=== PATIENT | male | born 1965 | race Caucasian/White ===

== ENCOUNTER → 2022-06-29 07:58 | Outpatient (BNVA) | payer OTHER, SELFPAY | PROVIDERS: Family Provider Electrodiagnostic Medicine; PCP Family Medicine; Visit Provider Family Medicine | DX: I10 Essential (primary) hypertension (principal); M54.32 Sciatica, left side; Z00.00 Encounter for general adult medical examination without abnormal findings; E66.9 Obesity, unspecified; Z72.0 Tobacco use | CPT/HCPCS: 80053; 80061; 83036; 85025 ==

== ENCOUNTER → 2022-07-13 09:34 | Outpatient (BNVA) | payer OTHER, SELFPAY | PROVIDERS: Family Provider Electrodiagnostic Medicine; PCP Family Medicine; Visit Provider Family Medicine | DX: I10 Essential (primary) hypertension (principal); M54.32 Sciatica, left side; Z72.0 Tobacco use | CPT/HCPCS: 80048 ==

== ENCOUNTER 2022-07-26 15:02 | Outpatient (CLI) | payer OTHER, SELFPAY ==
--- NOTE | 2022-07-26 15:15 | MR_ITS ---
WS: [id number] MRI LUMBAR SPINE NONCONTRAST TECHNIQUE: Sagittal T1, T2 and STIR imaging. Axial T1 and T2 imaging. CLINICAL INFORMATION: left sciatica COMPARISON: None. FINDINGS: Mild lumbar curve. Grade 1 anterolisthesis L5 on S1 with chronic spondylolysis. Bilateral facet effus ions L5-S1 can be seen with instability. L1-L2: Normal. L2-L3: Mild annular bulging. Small central protrusion. Mild central canal stenosis. Impingement trave rsing L3 nerve roots bilaterally. Small RIGHT foraminal protrusion with mild to moderate RIGHT forami nal narrowing. Mild facet arthropathy. L3-4: Mild annular bulging. Slight narrowing of the LEFT subarticular recess. Mild LEFT and no signif icant RIGHT foraminal narrowing. Mild facet arthropathy. L4-L5: Mild annular bulging. Impingement subarticular recess bilaterally. Mild LEFT and no significan t RIGHT foraminal narrowing. Moderate facet arthropathy. L5-S1: Grade 1 anterolisthesis L5 on S1 with bilateral spondylolysis. Endplate edema L5-S1. Advanced facet arthropathy with small facet effusions. Severe LEFT and moderate RIGHT foraminal narrowing. Imp ingement on the exiting L5 nerve roots. Visualized pelvic bony structures: Normal. Paravertebral soft tissues: Normal. MR/MR lumbar spine wo con* [id number] IMPRESSION: 1. Mild lumbar curve. No acute compression. Grade 1 anterolisthesis L5 on S1 w ith chronic spondylolysis. Anterolisthesis measures 5.7 mm 2. Advanced facet arthropathy L5-S1 with small bilateral facet effusions can b e seen with instability. 3. Mild central canal stenosis L2-L3 with a shallow central disc protrusion an d impingement subarticular recess bilaterally. 4. Small RIGHT foraminal protrusion L2-L3 with mild to moderate RIGHT foramina l narrowing and contact of the exiting RIGHT L2 nerve root. 5. Shallow disc bulging L4-L5 with impingement on the traversing L5 nerve root s bilaterally. Mild LEFT foraminal narrowing. 6. Severe LEFT and moderate RIGHT foraminal narrowing L5-S1.
== END 2022-07-26 15:03 | disposition home or self-care (01) ==
LOC: RAD 15:06
PROVIDERS: PCP Family Medicine; Visit Provider Family Medicine
DX: M54.32 Sciatica, left side (principal); M47.817 Spondylosis without myelopathy or radiculopathy, lumbosacral region; M48.061 Spinal stenosis, lumbar region without neurogenic claudication; M51.26 Other intervertebral disc displacement, lumbar region; M48.07 Spinal stenosis, lumbosacral region
CPT/HCPCS: 72148; 80053; 80061; 83036; 85025

== ENCOUNTER → 2022-08-03 08:07 | Outpatient (BNVA) | payer OTHER, SELFPAY | PROVIDERS: PCP Family Medicine; Visit Provider Family Medicine | DX: I10 Essential (primary) hypertension (principal); H61.21 Impacted cerumen, right ear; Z72.0 Tobacco use; M54.32 Sciatica, left side | CPT/HCPCS: 80048 ==

== ENCOUNTER 2022-09-28 16:40 | Emergency (ER) | payer OTHER, SELFPAY ==
--- NOTE | 2022-09-28 16:51 | ECG_ITS ---
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 Measurements Intervals [place] Rate: 84 P: 10 UT: 111 QRS: -21 QRSD: 116 T: 137 QT: 364 QTc: 431 Interpretive Statements SINUS RHYTHM WITH SHORT UT INTERVAL BORDERLINE LEFT AXIS DEVIATION [QRS AXIS < -20] LEFT VENTRICULAR HYPERTROPHY AND ST-T CHANGE [VOLTAGE CRITERIA PLUS ST/T ABNORMALITY] No previous ECG available for comparison Electronically Signed On 09-28-2022 17:44:28 CDT by Blanco Guerrero M.D. [id number]
[2022-09-28 16:52] VITALS: BP 171/100; PULSE 81; RESP 16; TEMP 37; O2SAT 98; BMI 33.3
--- NOTE | 2022-09-28 16:55 | XRR_ITS ---
PROCEDURE INFORMATION: Exam: XR Chest Exam date and time: 09/28/2022 5:00 PM Age: 57 years old Clinical indication: Pain; Angina pectoris; Additional info: Chest pain TECHNIQUE: Imaging protocol: Radiologic exam of the chest. Views: 1 view. COMPARISON: No relevant prior studies available. FINDINGS: Lungs: Unremarkable. No consolidation. Pleural spaces: Unremarkable. No pleural effusion. No pneumothorax. Heart/Mediastinum: Unremarkable. No cardiomegaly. Bones/joints: Unremarkable. XR/XR chest 1V portable [id number] IMPRESSION: No acute findings.
--- NOTE | 2022-09-28 17:02 | W.ED.CHESTPA ---
Documented by User: Leon Green DO 09/29/22 06:05 HPI - Chest Pain General: Chief Complaint: Chest Pain Stated Complaint: Chest Pain, Right shoulder pain Time Seen by Provider: 09/28/22 16:54 Source: patient Mode of arrival: ambulatory History of Present Illness: 57-year-old male presents emergency room complaining of right shoulder pain and chest pain. Has had this intermittently for the last 3 days it seems to have gotten worse. Substernal in nature radiates into his right shoulder last for a few minutes at a time seems to resolve spontaneously. Most of the episodes have been while at rest he 1 episode while he was working he does not really been able to tie it directly to exertion exacerbating it or rest relieving it. Not had any associated nausea or vomiting. No known history of coronary disease has not previously had any cardiac work-up he does have a history of hypertension. MD complaint: chest pain Onset (ago): day(s) (3) Timing of current episode: episodic Onset: during rest Pain location: substernal Pain radiation: right shoulder Severity: moderate Quality: tightness, aching and heaviness Relieving factors: nothing Exacerbating factors: nothing Associated symptoms: Deny abdominal pain, diaphoresis, dyspnea, fever(s), leg edema, nausea, palpitations, sense of impending doom, syncope or vomiting Treatment prior to arrival: aspirin Review of Systems Const: Denies: fever(s), chills, fatigue, malaise or diaphoresis ENMT: Denies: throat pain, ear or mastoid pain, nasal discharge or nasal congestion Card: Reports: chest pain; Denies: palpitations, irregular heart rhythm, edema, swelling of feet/ankles or syncope Resp: Denies: dyspnea GI: Denies: abdominal pain, nausea or vomiting : Denies: flank pain, dysuria, urinary frequency or urinary urgency Skin/Breast: Denies: rash or pruritus PFSH ED PFSH: Medical History Hypertension Surgical History History of colonoscopy History of repair of anterior cruciate ligament of right knee Family History Father Hypertension Hyperlipidemia CAD (coronary artery disease) Cancer prostate cancer Mother Stroke Social History Smoking and tobacco status: current every day smoker cigarettes Packs smoked per day: 0.5 Years cigarettes smoked: 25 [ Other cigarette details: 20 year history] Quit status (tobacco): quit date established Planned quit date: 07/13/22 Alcohol intake: current Alcohol intake frequency: 0-2 Drinks per Day Alcohol type: beer, wine and hard liquor Substance/Drug Use: never Household members: spouse Marital status: Number of children: 2 service: No Current occupational status: employed 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: Yes Physical Exam Const: GENERAL APPEARANCE: cooperative and comfortable ORIENTATION/CONSCIOUSNESS: Yes awake, Yes oriented to person, Yes oriented to place and Yes oriented to time HENMT: COMMON NORMALS: normocephalic, atraumatic and hearing grossly normal bilaterally HEAD & SCALP: normocephalic and atraumatic Resp: COMMON NORMALS: normal respiratory effort, No retractions, No use of accessory muscles and clear to auscultation bilaterally AUSCULTATION: clear to auscultation bilaterally Cardio: COMMON NORMALS: regular rate, regular rhythm and No murmurs present (Cardio) RATE: regular rate RHYTHM: regular rhythm GI: COMMON NORMALS: Soft to palpation and No hepatosplenomegaly present AUSCULTATION: Yes normoactive bowel sounds PALPATION: Yes Soft to palpation, No Tenderness to palpation present (GI), No Guarding due to palpation present (GI) and Yes No hepatosplenomegaly present Extremity: COMMON NORMALS: normal to inspection, capillary refill normal, no clubbing, cyanosis or edema, no calf tenderness and no pedal edema Neuro: SENSORIUM/ORIENTATION: Yes oriented to person, Yes oriented to place and Yes oriented to time Skin: COMMON NORMALS: no rashes or lesions noted GENERAL SKIN EXAM: no rashes or lesions noted Course Vital Signs: Vital signs: Vital Signs Temperature 98.6 F 09/28/22 16:52 Pulse Rate 80 09/28/22 20:54 Respiratory Rate 16 09/28/22 20:54 Blood Pressure 135/95 09/28/22 20:54 Pulse Oximetry 93 09/28/22 20:54 Oxygen Delivery Me thod Room Air 09/28/22 19:30 MDM - Chest Pain Medical Decision Making Care signed out to Dr. Aguirre at change of shift. See final notes for diagnosis and disposition. Patient presents for chest pain is since resolved his 2-hour troponin here is unchanged no signs of acute coronary syndrome he has no signs of dissection or pulm embolism he is to follow-up with his PCP and I informed he likely needs to get a stress test outpatient if he has any worsening of his pain he is to return he understands agrees to plan. Lab Data 09/28/22 17:06 09/28/22 17:06 Radiology Impressions Chest X-Ray 09/28/22 16:55 IMPRESSION: No acute findings. Laboratory Results WBC 8.8 10^3/uL (4.0-10.0) 09/28/22 17:06 RBC 4.27 10^6/uL (4.1-5.3) 09/28/22 17:06 Hgb 15.4 g/dL (11.7-16.6) 09/28/22 17:06 Hct 43.0 % (42.0-52.0) 09/28/22 17:06 MCV 100.7 fl (80-94) H 09/28/22 17:06 MCH 36.1 pg (28.0-34.0) H 09/28/22 17:06 MCHC 35.8 g/dL (30.0-36.0) 09/28/22 17:06 RDW 12.4 % (12.1-15.1) 09/28/22 17:06 Plt Count 167 10^3/cmm (130-400) 09/28/22 17:06 MPV 10.3 fL (7.4-10.4) 09/28/22 17:06 Neut % (Auto) 68.5 % 09/28/22 17:06 Lymph % (Auto) 23.0 % 09/28/22 17:06 Alfalfa % (Auto) 5.9 % 09/28/22 17:06 Eos % (Auto) 1.8 % 09/28/22 17:06 Baso % (Auto) 0.5 % 09/28/22 17:06 Neut # (Auto) 6.06 10^3/uL (1.8-7.7) 09/28/22 17:06 Lymph # (Auto) 2.0 10^3/uL (0.8-4.8) 09/28/22 17:06 Alfalfa # (Auto) 0.5 10^3/uL (0.2-0.9) 09/28/22 17:06 Eos # (Auto) 0.2 10^3/uL (0.0-0.8) 09/28/22 17:06 Baso # (Auto) 0.0 10^3/uL (0.0-0.1) 09/28/22 17:06 Nucleated RBC % (auto) 0 % 09/28/22 17:06 Nucleated RBCs # 0.0 /100WBC 09/28/22 17:06 Sodium 136 mmol/L (136-145) 09/28/22 17:06 Potassium 3.4 mmol/L (3.5-5.1) L 09/28/22 17:06 Chloride 100 mmol/L (98-107) 09/28/22 17:06 Carbon Dioxide 22 mmol/L (22-29) 09/28/22 17:06 Anion Gap 17.4 (5-19) 09/28/22 17:06 BUN 11 mg/dL (6-20) 09/28/22 17:06 Creatinine 0.8 mg/dL (0.7-1.2) 09/28/22 17:06 GFR Calculation 100.0 mL/min (90-130) 09/28/22 17:06 Glucose 101 mg/dL (65-115) 09/28/22 17:06 Calculated Osmolality 282 mOsm/kg (285-295) L 09/28/22 17:06 Calcium 8.9 mg/dL (8.5-10.5) 09/28/22 17:06 Total Bilirubin 0.3 mg/dL (0.15-1.2) 09/28/22 17:06 AST 28 U/L (0-40) 09/28/22 17:06 ALT 40 U/L (0-41) 09/28/22 17:06 Alkaline Phosphatase 58 U/L (40-130) 09/28/22 17:06 Troponin T Baseline 31 ng/L (0-15) H 09/28/22 17:06 Troponin T 120 Minute 33.97 ng/L (0-15) H 09/28/22 19:02 Delta Troponin T 2.97 ABS# (0-10) 09/28/22 19:02 Total Protein 6.7 g/dL (6.6-8.7) 09/28/22 17:06 Albumin 4.4 g/dL (3.5-5.2) 09/28/22 17:06 Globulin 2.3 g/dL (1.3-4.6) 09/28/22 17:06 Discharge Plan Discharge Patient Disposition: Home Clinical Impression: Chest pain Condition: Stable Prescriptions: No Action gabapentin 300 mg capsule 300 mg PO TID Qty: 90 0RF hydrocodone-acetaminophen 5-325 mg tablet 1 tab PO Q8H PRN (Reason: pain) 10 Days Qty: 30 0RF nicotine 14 mg/24 hr patch 24 hour 1 patch transdermal Q24H Qty: 14 0RF lisinopril 40 mg tablet 40 mg PO DAILY 60 Days Qty: 60 0RF amlodipine 5 mg tablet 5 mg PO BID Qty: 60 5RF (DME) CPAP Device See Rx Instructions .Route Qty: 1 0RF Rx Instructions: Cpap supplies Discharge Orders: Discharge ED (Routine); Ordered 09/28/22 Ordered By: Simeon Aguirre Referrals: Tyesha Buchanan MD [Primary Care Provider] - 1-3 days Discharge Diet: Advance as tolerated Discharge Activity: Resume usual activity Patient Instructions: Chest Pain (ED) Coding Level of Care Code ED Carbide Powder Processor for Chg Fwd Documented by User: Simeon Aguirre MD 09/28/22 20:48 HPI - Chest Pain General: Chief Complaint: Chest Pain Stated Complaint: Chest Pain, Right shoulder pain Time Seen by Provider: 09/28/22 16:54 PFSH ED PFSH: Medical History Hypertension Surgical History History of colonoscopy History of repair of anterior cruciate ligament of right knee Family History Father Hypertension Hyperlipidemia CAD (coronary artery disease) Cancer prostate cancer Mother Stroke Social History Smoking and tobacco status: current every day smoker cigarettes Packs smoked per day: 0.5 Years cigarettes smoked: 25 [ Other cigarette details: 20 year history] Quit status (tobacco): quit date established Planned quit date: 07/13/22 Alcohol intake: current Alcohol intake frequency: 0-2 Drinks per Day Alcohol type: beer, wine and hard liquor Substance/Drug Use: never Household members: spouse Marital status: Number of children: 2 service: No Current occupational status: employed 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: Yes Course Vital Signs: Vital signs: Vital Signs Temperature 98.6 F 09/28/22 16:52 Pulse Rate 80 09/28/22 20:54 Respiratory Rate 16 09/28/22 20:54 Blood Pressure 135/95 09/28/22 20:54 Pulse Oximetry 93 09/28/22 20:54 Oxygen Delivery Me thod Room Air 09/28/22 19:30 MDM - Chest Pain Medical Decision Making Patient presents for chest pain is since resolved his 2-hour troponin here is unchanged no signs of acute coronary syndrome he has no signs of dissection or pulm embolism he is to follow-up with his PCP and I informed he likely needs to get a stress test outpatient if he has any worsening of his pain he is to return he understands agrees to plan. Lab Data 09/28/22 17:06 09/28/22 17:06 Radiology Impressions Chest X-Ray 09/28/22 16:55 IMPRESSION: No acute findings. Laboratory Results WBC 8.8 10^3/uL (4.0-10.0) 09/28/22 17:06 RBC 4.27 10^6/uL (4.1-5.3) 09/28/22 17:06 Hgb 15.4 g/dL (11.7-16.6) 09/28/22 17:06 Hct 43.0 % (42.0-52.0) 09/28/22 17:06 MCV 100.7 fl (80-94) H 09/28/22 17:06 MCH 36.1 pg (28.0-34.0) H 09/28/22 17:06 MCHC 35.8 g/dL (30.0-36.0) 09/28/22 17:06 RDW 12.4 % (12.1-15.1) 09/28/22 17:06 Plt Count 167 10^3/cmm (130-400) 09/28/22 17:06 MPV 10.3 fL (7.4-10.4) 09/28/22 17:06 Neut % (Auto) 68.5 % 09/28/22 17:06 Lymph % (Auto) 23.0 % 09/28/22 17:06 Alfalfa % (Auto) 5.9 % 09/28/22 17:06 Eos % (Auto) 1.8 % 09/28/22 17:06 Baso % (Auto) 0.5 % 09/28/22 17:06 Neut # (Auto) 6.06 10^3/uL (1.8-7.7) 09/28/22 17:06 Lymph # (Auto) 2.0 10^3/uL (0.8-4.8) 09/28/22 17:06 Alfalfa # (Auto) 0.5 10^3/uL (0.2-0.9) 09/28/22 17:06 Eos # (Auto) 0.2 10^3/uL (0.0-0.8) 09/28/22 17:06 Baso # (Auto) 0.0 10^3/uL (0.0-0.1) 09/28/22 17:06 Nucleated RBC % (auto) 0 % 09/28/22 17:06 Nucleated RBCs # 0.0 /100WBC 09/28/22 17:06 Sodium 136 mmol/L (136-145) 09/28/22 17:06 Potassium 3.4 mmol/L (3.5-5.1) L 09/28/22 17:06 Chloride 100 mmol/L (98-107) 09/28/22 17:06 Carbon Dioxide 22 mmol/L (22-29) 09/28/22 17:06 Anion Gap 17.4 (5-19) 09/28/22 17:06 BUN 11 mg/dL (6-20) 09/28/22 17:06 Creatinine 0.8 mg/dL (0.7-1.2) 09/28/22 17:06 GFR Calculation 100.0 mL/min (90-130) 09/28/22 17:06 Glucose 101 mg/dL (65-115) 09/28/22 17:06 Calculated Osmolality 282 mOsm/kg (285-295) L 09/28/22 17:06 Calcium 8.9 mg/dL (8.5-10.5) 09/28/22 17:06 Total Bilirubin 0.3 mg/dL (0.15-1.2) 09/28/22 17:06 AST 28 U/L (0-40) 09/28/22 17:06 ALT 40 U/L (0-41) 09/28/22 17:06 Alkaline Phosphatase 58 U/L (40-130) 09/28/22 17:06 Troponin T Baseline 31 ng/L (0-15) H 09/28/22 17:06 Troponin T 120 Minute 33.97 ng/L (0-15) H 09/28/22 19:02 Delta Troponin T 2.97 ABS# (0-10) 09/28/22 19:02 Total Protein 6.7 g/dL (6.6-8.7) 09/28/22 17:06 Albumin 4.4 g/dL (3.5-5.2) 09/28/22 17:06 Globulin 2.3 g/dL (1.3-4.6) 09/28/22 17:06 Discharge Plan Discharge Patient Disposition: Home Clinical Impression: Chest pain Condition: Stable Prescriptions: No Action gabapentin 300 mg capsule 300 mg PO TID Qty: 90 0RF hydrocodone-acetaminophen 5-325 mg tablet 1 tab PO Q8H PRN (Reason: pain) 10 Days Qty: 30 0RF nicotine 14 mg/24 hr patch 24 hour 1 patch transdermal Q24H Qty: 14 0RF lisinopril 40 mg tablet 40 mg PO DAILY 60 Days Qty: 60 0RF amlodipine 5 mg tablet 5 mg PO BID Qty: 60 5RF (DME) CPAP Device See Rx Instructions .Route Qty: 1 0RF Rx Instructions: Cpap supplies Discharge Orders: Discharge ED (Routine); Ordered 09/28/22 Ordered By: Simeon Aguirre Referrals: Tyesha Buchanan MD [Primary Care Provider] - 1-3 days Discharge Diet: Advance as tolerated Discharge Activity: Resume usual activity Patient Instructions: Chest Pain (ED) Coding Level of Care Code ED Carbide Powder Processor for Virginia Olivier
[2022-09-28 17:13] LABS: Basophils % 0.5 %; Eosinophils # 0.2 10^3/uL (0.0-0.8); Eosinophils % 1.8 %; Hemoglobin 15.4 g/dL (11.7-16.6); Mean Corpuscular HGB Conc 35.8 g/dL (30.0-36.0); Mean Corpuscular Hemoglobin 36.1 pg (28.0-34.0); Mean Corpuscular Volume 100.7 fl (80-94); Mean Platelet Volume 10.3 fL (7.4-10.4); Monocytes # 0.5 10^3/uL (0.2-0.9); Monocytes % 5.9 %; Neutrophils # 6.06 10^3/uL (1.8-7.7); Neutrophils % 68.5 %; Nucleated Red Blood Cells % 0 %; Platelet Count 167 10^3/cmm (130-400); Red Blood Count 4.27 10^6/uL (4.1-5.3); Red Cell Distribution Width 12.4 % (12.1-15.1); White Blood Count 8.8 10^3/uL (4.0-10.0)
[2022-09-28 17:40] LABS: Alanine Aminotransferase 40 U/L (0-41); Albumin Level 4.4 g/dL (3.5-5.2); Alkaline Phosphatase 58 U/L (40-130); Anion Gap 17.4 (5-19); Aspartate Amino Transferase 28 U/L (0-40); Blood Urea Nitrogen 11 mg/dL (6-20); Calcium 8.9 mg/dL (8.5-10.5); Carbon Dioxide 22 mmol/L (22-29); Chloride 100 mmol/L (98-107); Globulin 2.3 g/dL (1.3-4.6); Glucose 101 mg/dL (65-115); Osmolality Calculated 282 mOsm/kg (285-295); Potassium 3.4 mmol/L (3.5-5.1); Sodium 136 mmol/L (136-145); Total Bilirubin 0.3 mg/dL (0.15-1.2); Total Protein 6.7 g/dL (6.6-8.7)
[2022-09-28 18:31] LABS: Troponin(5th) Baseline 31 ng/L (0-15)
[2022-09-28 18:36] VITALS: BP 129/74; PULSE 78; RESP 18; O2SAT 93
[2022-09-28 19:30] VITALS: BP 128/74; PULSE 77; RESP 20; O2SAT 94
[2022-09-28 20:15] VITALS: BP 132/84; PULSE 79; RESP 22; O2SAT 91
[2022-09-28 20:41] LABS: Troponin 5 2HR 33.97 ng/L (0-15); Troponin 5 2HR Delta 2.97 ABS# (0-10)
[2022-09-28 20:54] VITALS: BP 135/95; PULSE 80; RESP 16; O2SAT 93
== END 2022-09-28 20:55 | disposition home or self-care (01) ==
PROVIDERS: Family Medicine; Emergency Provider Emergency Medicine; PCP Family Medicine
DX: R07.2 Precordial pain (principal)
CPT/HCPCS: 36415; 71045; 80053; 84484; 85025; 93005; 99283

== ENCOUNTER 2022-10-27 11:33 | Outpatient (CLI) | payer OTHER, SELFPAY ==
--- NOTE | 2022-10-27 | ECG_ITS ---
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 Interpretive Statements NAME OF STUDY: TREADMILL STRESS TEST INDICATION: [Chest Pain] EXERCISE DATA: The patient was exercised by Nathanael protocol. Baseline heart rate was 72 beats per minute. Baseline blood pressure was 145/77 millimeters of mercury. Target heart rate was 139 beats per minute. Maximum heart rate achieved was 142 which was 102% of the target heart rate. Maximum blood pressure was 220/80 millimeters of mercury. Total exercise time was 8 minutes and 3 seconds. Maximum METs achieved was 9.5. The reason for ending the test was maximal eefort achieved. The patient complained of shortness of breath during the stress test, which then resolved at the end of the test. ELECTROCARDIOGRAM: BASELINE: Showed sinus rhythm, normal axis, non specific ST-T changes at the baseline noted. [] EXERCISE: At the peak exercise level, [] significant artifact was noted on EKG tracings. However 1-2mm ST depressions are noted in the inferior leads II, III and aVF. RECOVERY: During the recovery period, heart rate dropped appropriately. No significant ST-T changes in the recovery suggestive of ischemia noted. [] CONCLUSION: 1. Exercise capacity is fair 2. Heart rate response was appropriate 3. Blood pressure response was hypertensive 4. Symptoms not suggestive of ischemia. 5. Although significant artifacts are noted at exercise on EKG tracings that reduces the specificity of findings, ST depressions are seen in inferior leads at peak exercise level. This is consistent with possible ischemia. Electronically Signed On 10-28-2022 8:54:10 CDT by Blanco Guerrero M.D. [id number]
[2022-10-27 11:55] VITALS: BMI 33.6
[2022-10-27 12:38] VITALS: BP 172/83; PULSE 99
== END 2022-10-27 11:34 | disposition home or self-care (01) ==
PROVIDERS: PCP Family Medicine; Visit Provider Family Medicine
DX: R07.9 Chest pain, unspecified (principal)
CPT/HCPCS: 93017

== ENCOUNTER 2022-11-21 15:16 | Outpatient (CLI) | payer OTHER, SELFPAY ==
[2022-11-21 16:25] LABS: Basophils # 0.1 10^3/uL (0.0-0.1); Basophils % 0.5 %; Eosinophils # 0.2 10^3/uL (0.0-0.8); Eosinophils % 1.5 %; Hematocrit 43.5 % (42.0-52.0); Hemoglobin 15.3 g/dL (11.7-16.6); Lymphocytes # 2.1 10^3/uL (0.8-4.8); Lymphocytes % 19.1 %; Mean Corpuscular HGB Conc 35.2 g/dL (30.0-36.0); Mean Corpuscular Hemoglobin 36.2 pg (28.0-34.0); Mean Corpuscular Volume 102.8 fl (80-94); Mean Platelet Volume 10.7 fL (7.4-10.4); Monocytes # 0.7 10^3/uL (0.2-0.9); Monocytes % 6.2 %; Neutrophils # 7.99 10^3/uL (1.8-7.7); Neutrophils % 72.4 %; Nucleated Red Blood Cells % 0 %; Platelet Count 158 10^3/cmm (130-400); Red Blood Count 4.23 10^6/uL (4.1-5.3); Red Cell Distribution Width 12.5 % (12.1-15.1)
[2022-11-21 16:34] LABS: INR 0.97 (0.83-1.21); Prothrombin Time (Patient) 13.2 Seconds (12.0-15.1)
[2022-11-21 16:49] LABS: Anion Gap 15.5 (5-19); Blood Urea Nitrogen 12 mg/dL (6-20); Carbon Dioxide 23 mmol/L (22-29); Chloride 104 mmol/L (98-107); Glomerular Filtration Rate 77.3 mL/min (90-130); Glucose 96 mg/dL (65-115); Osmolality Calculated 288 mOsm/kg (285-295); Potassium 3.5 mmol/L (3.5-5.1); Sodium 139 mmol/L (136-145)
== END 2022-11-21 15:17 | disposition home or self-care (01) ==
LOC: LAB 15:18
PROVIDERS: PCP Family Medicine; Visit Provider Internal Medicine Cardiovascular Disease
DX: R94.39 Abnormal result of other cardiovascular function study (principal)
CPT/HCPCS: 36415; 80048; 85025; 85610

== ENCOUNTER 2022-11-22 07:23 | Outpatient (CLI) | payer OTHER, SELFPAY ==
[2022-11-22] VITALS (88 sets, daily range): BP systolic 121–162; BP diastolic 61–102; PULSE 64–87; RESP 13–34; TEMP 36.6–36.7; O2SAT 89–96; BMI 33.7
--- NOTE | 2022-11-22 07:30 | XACV_ITS ---
Exam Room: 2 Ht: 165 cm Wt: 92 kg BSA: 2.09 m2 Gender: Male : 1965 Any Known Allergies: No known allergies Exam Priority: Routine Procedure(s): Procedure Description: Diagnostic procedure Procedure Description: PCI procedure Procedure Description: Left Heart Catheterization Procedure Description: Drug Eluting Coronary Stent Procedure Description: Coronary Angiography Procedure Description: Pressure Wire Diagnostic Cath Status: Elective Diagnostic Findings * 71-year-old with past medical history of hypertension, borderline diabetes not on medications and hyperlipidemia was seen in office with upper abdominal constant chest pressure that feels like indigestion/heartburn. She also has history of smoking 1 pack every 3 days for last 50 years. She underwent sestamibi stress test that showed medium sized area of reversible ischemia in left anterior descending artery territory. * Left Main has no disease. * Proximal Left Anterior Descending: obstructive 95% stenosis, SEE: 2 flow in distal vessel. Mid and distal vessel without any significant disease.. * Proximal Circumflex with 50-60% stenosis. * Right Coronary Artery has mild disease in proximal and mid vessel. * Coronary angiography shows right dominance. * Case was discussed and images were reviewed with Dr. Pope. He took over the case at this time. PCI Status: Urgent PCI LVEF Assessed: No PCI Indication: New Onset Angina <= 2 months Interventional Findings * The proximal LAD lesion was primarily stented with a 3.75 x 12 mm stent with a good angiographic result. The proximal circumflex lesion underwent IFR. The value of 0.96. Decision for PCI with Surgical Consult: No PCI for Multi-vessel Disease: No Conclusions 1. There is obstructive coronary artery disease with one vessel disease. Severe Proximal LAD lesion was primarily stented.. 2. Moderate proximal circumflex lesion was not hemodynamically significant by iFR (0.96). Recommendations * Continue current medical management and risk factor modification. * Plavix for at least one year and Aspirin indefinitely. Left Ventriculography Findings: * Left Ventriculogram not performed to minimize contrast use. Pressures Phase:Rest AO : 131 / 85 ( 102 ) @ 9:41:00 AM 105 / 86 ( 97 ) @ 9:44:00 AM 124 / 82 ( 100 ) @ 9:49:00 AM 107 / 91 ( 100 ) @ 9:51:00 AM 128 / 77 ( 99 ) @ 9:58:00 AM 128 / 63 ( 93 ) @ 9:58:00 AM 137 / 81 ( 104 ) @ 10:08:00 AM LV : 147 / -7 / 15 @ 9:58:00 AM 149 / -5 / 17 @ 9:58:00 AM Hemodynamic Findings LVEDP is 15 mmHg. Valves Phase:DefaultPhase AV : 22.0 @ 9:34:02 AM AV Mean Gradient: 21.0 @ 9:34:02 AM 21.0 @ 9:34:02 AM Clinical Evaluation EBL: 5mL-10mL Procedural Details Procedure Consent Obtained. Admit Source: Out Patient. Pre-Procedure Time Out. Identified patient by full name and date of as verbalized by the patient/guarantor. Does the consent match the physician's order: Yes. Accurate & Complete Informed Consent: Yes. Inpatient/Outpatient History & Physical on Chart: Yes. If H&P is completed, is and addenduem needed: No; If yes, is the addendum complete: N/A. Visualize and Verify Site with Patient/Guarantor: N/A. Relevant Radiology Images available: Yes. Pre-op teaching completed and patient verbalized understanding. The risks, benefits, and alternatives of sedation and/or procedure were discussed by physician. The patient agrees to continue. Procedure started. [facility] Clinical Fraility Score: 3: Managing Well. Photographer Motion Picture Indications: Other. Chest Pain Symptom Assessment: Atypical Angina. Correct patient, site and procedure confirmed by cath team. Baseline sample Acquired. HR: 66 BPM. Current diagnosis: Chest Pain. PERRLA. 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 Lungs clear x 5 lobes. IV Site on Arrival: 18 gauge in the right anticubital. IV Fluids: 0.9% NaCl at KVO. 0 mL infused prior to wharf labourer. Pre Procedural Pulses: bilateral radial was 3+. Pre Procedural Pulses: bilateral dorsalis pedis was 3+. Pre Procedural Pulses: bilateral posterior tibial was 3+. Oxygen started at 2liters/min via nasal canula. right groin was prepped with chloroprep then draped in the usual sterile fashion. right radial was prepped with chloroprep then draped in the usual sterile fashion. Physician notified. Baseline sample Acquired. HR: 81 BPM. Physician arrived. Physician scrubbed in. Immediate Pre-Procedure Time Out. Correct Patient: Yes; Correct Procedure: Yes; Correct Site: Yes; Correct Patient Position: Yes; Correct Supplies: Yes; Dried Flammable Prep: Yes; Blood Products Available: N/A;. Lidocaine 1% infiltrated to the right radial. Arterial access obtained. A 5 bolivian TIG catheter in over wire. Multiple views taken of left coronary artery. Catheter redirected to the RCA. Dr. Pope called to lab to review cine films. Catheter removed over the exchange wire. A 5 bolivian JR4 catheter in over wire. Multiple views taken of right coronary artery. EDP Sample taken: LV 147/-8,15; HR: 81 BPM; SpO2: 96%. Pullback taken: LV 149/-6,17; AO 128/77(99); Mean: 21mmHg, Peak to Peak: 22mmHg, SEP: 11sec/min; HR: 81 BPM; SpO2: 96%. Catheter removed over the exchange wire. Patient's family updated. Dr. Pope scrubbed in to perform intervention. 6 bolivian CLS 3 guide catheter was inserted over the wire. [place] guidewire was advanced through the guide catheter to lesion in the prox LAD. Guidewire advanced across lesion. Stent inserted to lesion in the prox LAD. Inflation Number : 1 Linnette Rodriguez PADMINI 2.75X12 ENDY -Lot Number# [id number]:01/09/2024_ was prepped and advanced across the Prox LAD. The stent was deployed at 12 THUY for 0:31 seconds. Stent balloon and wire out. Results checked. IFR pressure guidewire advanced through guidewire to mid circ. IFR guidewire advanced across lesion in mid circ. IFR results of mid circ 0.96 mmHg. Wire out. Guide catheter out. A TR Band was successful obtaining hemostatsis at the Right Radial artery insertion site. Post Procedure: Pulses reassessed and unchanged. PERRLA. 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 No VTE prophylaxis required. Medication's Wasted: Lidocaine 1% = 2 mL. Medication's Wasted: Nitro = 49.8 mg. Medication's Wasted: Heparin = 1000 units. Total IV fluids: 75 mL. Post-op diagnosis: CAD. Complications: none. Estimated blood loss: 5mL-10mL. Responsiveness - Normal response to verbal stimuli; alert and oriented, PERRLA. Airway - Unaffected, no intervention required; spontaneous ventilation. Circulation: W/N/L, pulses unchanged. Nausea/Vomiting: No. Procedure completed. Patient transferred by wheelchair to CPRU. Vital chart was stopped. Access Site Site: Right Radial artery Sheath Size: 6 Fr Hemostasis Method: TR Band Hemostasis Success: Successful Complication Findings: No complications occurred during the procedure. Intra/Post-Procedure Events Stroke - Undetermined: No Cardiac Arrest: No Procedure Medications Start: 8:32 AM Stop: 8:32 AM Medication: Versed Amount: 1 mg Route: I.V. Start: 8:32 AM Stop: 8:32 AM Medication: Fentanyl Amount: 50 mcg Route: I.V. Start: 8:35 AM Stop: 8:35 AM Medication: Versed 1 mg and Fentanyl 25 mcg Route: I.V. Start: 8:38 AM Stop: 8:38 AM Medication: Nitrogylcerin Amount: 200 mcg Route: I.A. Start: 8:40 AM Stop: 8:40 AM Medication: Heparin Amount: 5000 units Route: I.V. Start: 8:46 AM Stop: 8:46 AM Medication: Versed Amount: 1 mg Route: I.V. Start: 9:10 AM Stop: 9:10 AM Medication: Versed Amount: 1 mg Route: I.V. Start: 9:25 AM Stop: 9:25 AM Medication: Fentanyl Amount: 25 mcg Route: I.V. I, the attending physician, have reviewed and verified all procedure medications. Yes, all medications given per verbal order History/Risk Factors Hypertension: Yes Dyslipidemia: No Peripheral Arterial Disease (PAD): No Myocardial Infarction (MS): No Obesity: No Renal Disease: No Tobacco Use: Current/Recent(w/in 1 year) Prior Interventions PCI: No CABG: No Valve Surgery: No Report Signatures Diagnostic Workflow Finalized by Katie Mulligan MD on 11/28/2022 05:28 PM Interventional Workflow Finalized by Dr. Flako Pope MD on 11/22/2022 09:40 AM
[2022-11-22] MEDS: diphenhydrAMINE 50 mg Capsule PO (07:36)
--- NOTE | 2022-11-22 08:29 | W.PM.OPSUD ---
Surgery/Procedure H&P Update DATE OF PROCEDURE: November 22, 2022 DATE H&P PERFORMED: 11/10/22 PREOP DIAGNOSIS: Chest pain, abnormal atress test PRIMARY INDICATION FOR PROCEDURE: Chest pain, abnormal stress test PLANNED PROCEDURE: Operation Date: 11/22/22 08:30 Proposed Procedures p [facility] w/wo [id number] R94.39,R07.9(Left) - Katie Mulligan MD PATIENT REASSESSED PRIOR TO SEDATION, WITH NO CHANGE NOTED: Yes PHYSICAL EXAM: alert, oriented x 3, clear to auscultation bilaterally and regular rate & rhythm AIRWAY EVAL/ANESTHESIA PLAN: normal airway, ASA III, Monitored Anesthesia, Local Anesthesia, Risks, benefits & alternatives of sedation and/or procedure discussed and Patient agrees to continue as planned
--- NOTE | 2022-11-22 09:30 | SUR.EXTENDED ---
Received the patient back from the laborer construction or leak gang S/P PCI of the LAD and iFR of the CX via wheelchair. Patient ambulated to the bed without difficulty. Patient A & O x 3. monitor car operator placed and vital signs obtained. TR band intact to the right wrist. Palpable radial pulse present with no bleeding or hematoma noted. No other assessment changes noted from pre cath assessment. Spouse, Oriana, at bedside. No concerns voiced at this time. Will transfer to CSU after recovery.
--- NOTE | 2022-11-22 10:02 | SUR.EXTENDED ---
Patient transferred via wheelchair to room 105.
--- NOTE | 2022-11-22 10:16 | PC.NURSE ---
Patient arrived from [facility] via wheelchair. Report received from NUNU Whiteside. TR band in place, no oozing or hematoma present. Nurse will continue to monitor.
[2022-11-22] MEDS: sodium chloride 0.9% 1,000 ML 100 ML IV (11:40)
--- NOTE | 2022-11-22 15:36 | PC.NURSE ---
TR band removed, no issues or concerns. Dressing placed nurse will continue to monitor.
--- NOTE | 2022-11-22 17:23 | P.DS_ITS ---
Discharge Providers Date of Admission: 11/22/22 Date of Discharge: November 23, 2022 Attending Provider at Discharge: Katie Mulligan MD Primary Care Provider: yTesha Buchanan MD Reason for Visit Reason for Visit: R07.9 Brief History: Admitted for elctive left heart cathetarization for chest pain and abnormal stress test Hospital Course Hospital Course He has PMHx of HTN, smoking and family h/o CAD. He underwent treadmill stress test that showed ST depressions in inferior leads at peak exercise level consistent with possible ischemia. He underwent left heart cathetarization via right radial that showed severe px LAD and moderate 50-60% px to mid LCx stenosis. Px LAD underwent ENDY placement and LCx stenosis underwent iFR that was not significant. Patient tolerated the procedure well. Physical Exam Const: COMMON NORMALS: no acute distress, patient oriented x3 and alert GENERAL APPEARANCE: cooperative, comfortable, well kempt and well hydrated HENMT: COMMON NORMALS: hearing grossly normal bilaterally, external ears normal and moist oral mucous membranes EXTERNAL EAR: Yes external ears normal Eye: COMMON NORMALS: EOMs intact bilaterally and no scleral icterus GENERAL EYE: appearance normal, both eyes and all related structures ALIGNMENT: Yes alignment normal Neck/C-Spine: COMMON NORMALS: supple and no JVD GENERAL: Yes normal visual inspection CAROTIDS: Yes normal carotid upstroke Chest: COMMONS NORMALS: normal inspection of the chest and normal palpation of entire chest wall CHEST: Yes Symmetrical chest wall rise and No tenderness Resp: COMMON NORMALS: clear to auscultation bilaterally AUSCULTATION: clear to auscultation bilaterally, no crackles, no rales, no rhonchi and no wheezes Cardio: COMMON NORMALS: no JVD, regular rate, regular rhythm, S1 normal heart sound present, S2 normal heart sound present and Peripheral pulses 2+ throughout PALPATION: normal PMI RATE: regular rate RHYTHM: regular rhythm HEART SOUNDS: S1 normal heart sound present, S2 normal heart sound present and no murmurs BRUITS: no carotid bruits PERIPHERAL PULSES: Peripheral pulses 2+ throughout, radial pulses present, posterior tibial pulses present and dorsalis pedis present GI: COMMON NORMALS: Soft to palpation AUSCULTATION: Yes normoactive bowel sounds PALPATION: Yes Soft to palpation, No Tenderness to palpation present (GI), No Guarding due to palpation present (GI) and No Rigid due to palpation PERCUSSION: tympanic to percussion Extremity: GENERAL: No clubbing, No cyanosis, Yes edema and No pallor Neuro: COMMON NORMALS: patient oriented x3, CN's II-XII intact bilaterally and no focal motor deficits SENSORIUM/ORIENTATION: Yes alert Psych: COMMON NORMALS: Normal thought process present and speech normal APPEARANCE: Yes well kempt SPEECH: Yes normal speech MOOD & AFFECT: Yes euthymic mood THOUGHT PROCESS: Normal thought process present THOUGHT CONTENT: Yes Normal thought content present Discharge Data Studies Completed and Pending Pending at discharge Category Date Time Status 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 Routine Exams 11/22/22 07:30 Taken Vitals Last Vital Signs Temp 97.9 F 11/22/22 12:05 Pulse 70 11/22/22 12:40 Resp 16 11/22/22 12:40 BP 131/89 11/22/22 12:40 Pulse Ox 93 11/22/22 12:40 O2 Del Method Room Air 11/22/22 11:26 Discharge Plan Discharge Patient Disposition: Home Prescriptions: New atorvastatin 40 mg Tablet 40 mg PO BEDTIME Qty: 90 2RF Continued gabapentin 300 mg capsule 300 mg PO TID Qty: 90 0RF aspirin 81 mg tablet,delayed release (DR/EC) 81 mg PO DAILY Qty: 30 0RF nitroglycerin [Nitrostat] 0.4 mg tablet, sublingual 0.4 mg sublingual Q5M PRN (Reason: chest pain) Qty: 100 0RF Rx Instructions: do not exceed 3 doses per episode omega-3 acid ethyl esters 1 gram capsule 1 cap PO BID nicotine 14 mg/24 hr patch 24 hour 1 patch transdermal Q24H Qty: 14 0RF amlodipine 5 mg tablet 5 mg PO BID Qty: 60 5RF (DME) CPAP Device See Rx Instructions .Route Qty: 1 0RF Rx Instructions: Cpap supplies lisinopril 40 mg tablet 40 mg PO DAILY 60 Days Qty: 60 1RF Changed clopidogrel 75 mg tablet 75 mg PO DAILY Qty: 90 2RF Discontinued atorvastatin 20 mg tablet 20 mg PO DAILY Qty: 90 1RF Discharge Orders: Discharge Order (Routine); Ordered 11/23/22 Ordered By: Katie Mulligan Other Ambulatory Orders: Basic Metabolic Panel (Routine) Timeframe: 1 Week Facility: [facility] - Location: Lab - Main Lab Ordered By: Katie Mulligan Referrals: Tigist Wall FNP [Nurse Practitioner] - 11/28/22 1:45 pm (Please follow-up with Tigist Wall on Monday, November 28 at 1:45P.M. If you have any qustions or need to reschedule. Please call ) Katie Mulligan MD [Physician] - (During your appointment with Tigist Wall you will be scheduled for an follow-up with Dr. Mulligan. ) Diet: Cardiac Activity: Limit activity as instructed and May return to work/school without restrictions Patient Instructions: Atorvastatin (By mouth) (Lipitor), DASH Eating Plan (DC), Coronary Intravascular Stent Placement (DC), Chest Pain Stoplight, Post Angiogram Home Care Instructions Activity Restrictions/Additional Instructions: Do not lift anything more than 5 lbs for 1 week. Keep the site dry and clean Take medications as prescribed and follow up as scheduled. Discharge Date/Time: 11/23/22 08:53 Discharge Attestations Time Spent in Discharge Care*: less than 30 min Time Spent in Smoking Cessation: 3 to 10 minutes Pharmacotherapy and smoking cessation program offered. Advised on implication of long tern smoking on CAD and lungs. Quality Metrics Clinical Quality Measures [ No reported AMI, CVA or VTE this stay] Coding Level of Care Code 01994 Diagnoses
[2022-11-23] VITALS: BP 135/80; PULSE 77; RESP 17; TEMP 36.5; O2SAT 93
[2022-11-23 03:59] VITALS: BP 139/90; PULSE 83; RESP 17; TEMP 36.8; O2SAT 94
[2022-11-23 04:49] VITALS: PULSE 69
[2022-11-23 07:35] VITALS: BP 143/94; PULSE 73; RESP 16; TEMP 36.6; O2SAT 94
[2022-11-23] MEDS: aspirin 81 mg EC Tablet PO (08:19)
[2022-11-23] MEDS: clopidogrel 75 mg Tablet PO (08:20)
--- NOTE | 2022-11-23 08:50 | PC.NURSE ---
pt denies any chest pain all night and this morning. He said he feels good today. Cath site is c/d/i.
--- NOTE | 2022-11-23 08:51 | PC.NURSE ---
Pt stated he took his home meds already this morning such as lisinopril, amlodipine, refused gabapentin. Allows nurse to give him his plavix and aspirin.
== END 2022-11-23 08:53 | disposition home or self-care (01) ==
LOC: CCL 07:28 → CSU 10:08
PROVIDERS: Internal Medicine Cardiovascular Disease; PCP Family Medicine; Visit Provider Internal Medicine Cardiovascular Disease
DX: R07.9 Chest pain, unspecified (principal); I10 Essential (primary) hypertension; R94.39 Abnormal result of other cardiovascular function study; Z79.82 Long term (current) use of aspirin; E78.5 Hyperlipidemia, unspecified; F17.210 Nicotine dependence, cigarettes, uncomplicated
CPT/HCPCS: 36415; 93458; 93571; 96361; 96365; 96376; 99152; 99153; C1769; C1874; C1887; C1894; C9600; J1644; J2250; J3010; J3490; J7030; Q0163; Q9967

== ENCOUNTER 2022-11-28 14:32 | Outpatient (CLI) | payer OTHER, SELFPAY | END 2022-11-28 14:33 | disposition home or self-care (01) | PROVIDERS: PCP Family Medicine; Visit Provider Internal Medicine Cardiovascular Disease | DX: Z98.890 Other specified postprocedural states (principal) | CPT/HCPCS: 36415; 80048 ==

== ENCOUNTER 2023-09-15 07:39 | Outpatient (CLI) | payer OTHER, SELFPAY ==
--- NOTE | 2023-09-15 | ECG_ITS ---
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 Interpretive Statements NAME OF STUDY: LEXISCAN SESTAMIBI STRESS TEST INDICATION: [HTN] Procedure: At the baseline, the blood pressure was 128/71 mmHg with a heart rate of 70 bpm. The electrocardiogram showed normal sinus rhythm, normal axis with normal ST and T's. The Lexiscan was infused over a period of 20 seconds. A total of 0.4 mg of Lexiscan was infused. The stress phase was continued for a total of 5 minutes. Heart rate was at the end of stress phase was 76 bpm and a blood pressure of 115/73 mmHg. The EKG at the peak infusion revealed normal sinus rhythm with no significant ST-T wave changes. Sestamibi was injected 20 seconds after the Lexiscan infusion. Blood pressure at the end of recovery phase was 124/72 mmHg with a heart rate of 74 bpm. Conclusion: 1. Normal EKG response to Lexiscan infusion 2. No Lexiscan induced chest pain or cardiac arrhythmia. 3. Normal blood pressure and heart rate response. 4. Sestamibi/sestamibi perfusion scan pending; see separate report. Electronically Signed On 10-03-2023 9:37:26 CDT by Blanco Guerrero M.D. [id number]
[2023-09-15 07:45] VITALS: BMI 34.6
--- NOTE | 2023-09-15 08:16 | NMCV_ITS ---
NM liliana perf SPECT r/s* [id number] Arcadio Hough Age: 58 Gender: M : 1965 Exam Date: 09/15/2023 08:30 Ordering Phys: Blanco Guerrero M.D ([email or web address]) Technologist: REMY Shepard Exam Location: [facility] Indications: HYPERTENSION STRESS TEST [facility] IMAGE PROTOCOL Rest/Stress 1 Lexiscan Day Radiopharmaceutical Dose (mCi) Administration Site Administered by Rest: Tc-99m 10.6 IV REMY Gerardo Sestamibi Stress:Tc-99m 32.7 IV REMY Gerardo Sestamibi Rest: 15-Sep-2023 60 Discovery 630 Stress: 15-Sep-2023 30 Discovery 630 0.4mg Lexiscan. Images obtained in supine and prone position. SPECT RESULTS Technical Quality: Excellent Raw Data Analysis: Normal Image Corrections: No attenuation or motion correction applied Summed Stress Score: 1 Summed Rest Score: 4 Summed Difference Score: 0 PERFUSION FINDINGS There is a small sized, fixed perfusion defect noted in apical lateral wall. This is consistent with small area of prior infarct in left circumflex artery territory. No significant ischemia seen. FUNCTIONAL RESULTS (calculated via Gated SPECT) Stress Image LV EF (%): 63 Stress EDV (mL):139 TID: 1 Stress ESV (mL):51 FUNCTIONAL FINDINGS: There is normal left ventricular systolic function. IMPRESSIONS 1. 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 No evidence of ischemia 2. LV systolic function is normal Blanco Guerrero MD (Electronically Signed) Final Date: 17 Sep 2023 11:52 S
[2023-09-15] MEDS: regadenoson 0.4 Mg/5 ml Syringe 0.400000000000000022 MG IVP (09:04)
[2023-09-15 09:21] VITALS: BP 126/74; PULSE 76
== END 2023-09-15 07:40 | disposition home or self-care (01) ==
PROVIDERS: PCP Family Medicine; Visit Provider Internal Medicine
DX: I10 Essential (primary) hypertension (principal)
CPT/HCPCS: 36415; 78452; 93017; 96374; A9500; J2785

== ENCOUNTER → 2023-10-12 11:36 | Outpatient (BNVA) | payer OTHER, SELFPAY | PROVIDERS: PCP Family Medicine; Visit Provider Student in an Organized Health Care Education/Training Program | DX: M75.41 Impingement syndrome of right shoulder | CPT/HCPCS: 73030 ==

== ENCOUNTER 2023-10-17 06:40 | Outpatient (CLI) | payer OTHER, SELFPAY ==
--- NOTE | 2023-10-17 07:00 | CT_ITS ---
WS: [id number] CT LUMBAR SPINE, noncontrast. HISTORY: M54.16 - Radiculopathy, lumbar region TECHNIQUE: Contiguous 2.0 mm axial imaging are performed. Sagittal and coronal reformats are submitte d and reviewed. All CT scans at [facility] use at least one of these dose optimization techni ques: automated exposure control; mA and/or kV adjustment per patient size (includes targeted exams w here dose is matched to clinical indication); or iterative reconstruction. IV contrast: None DLP: 671.52 mGy.cm COMPARISON: MRI lumbar spine 07/26/2022 Focal increase in the lumbar lordosis centered at L5-S1. L5 anterolisthesis by 6 mm compared to S1. T he posterior lumbar vertebral body is in near contact of the superior endplate of the sacrum. Vacuum disc phenomenon at L5-S1. Bilateral pars defects at L5. The remaining lumbar vertebral bodies are nearly normally aligned. Less than 2 mm retrolisthesis of L 1 and L2. Disc spaces are otherwise well-preserved. L1-2: Normal. L2-3: Mild annular disc bulging and osteophytic ridging. Mild facet joint arthritis. Degenerative air in the RIGHT facet joint. Mild central, bilateral subarticular recess and foraminal stenosis. L3-4: Mild annular disc bulging encroaching upon the ventral thecal sac. Small amount of degenerative air in the RIGHT facet joint. Mild central, bilateral subarticular recess and foraminal stenosis. L4-5: Mild annular disc bulging with ligamentum flavum and facet arthritis. Small central disc protru sions. Mild central with bilateral subarticular recess and moderate foraminal stenosis. There is encr oachment upon both the L4 and L5 nerve roots. L5-S1: Annular disc bulging with marked facet and ligamentum flavum hypertrophy. No central stenosis but there is disc encroachment upon the traversing S1 nerve roots and severe bilateral foraminal sten osis. Visualized retroperitoneum is normal. CT/CT lumbar spine wo con* [id number] IMPRESSION: 1. Grade 1 spondylolisthesis of L5 with spondylolysis. 2. L5-S1: Severe bilateral foraminal stenosis with mild bilateral subarticular recess encroachment. 3. Facet joint arthropathy throughout the lumbar spine. 4. L2-3 and L3-4: Mild central, bilateral subarticular recess and foraminal st enosis. 5. L4-5: Mild central with bilateral subarticular recess and moderate foramina l stenosis.
== END 2023-10-17 06:41 | disposition home or self-care (01) ==
LOC: RAD 06:40
PROVIDERS: PCP Family Medicine; Visit Provider Anesthesiology Pain Medicine
DX: M47.26 Other spondylosis with radiculopathy, lumbar region (principal); M48.07 Spinal stenosis, lumbosacral region
CPT/HCPCS: 72131

== ENCOUNTER → 2023-12-11 07:35 | Outpatient (BNVA) | payer OTHER, SELFPAY | PROVIDERS: PCP Family Medicine; Visit Provider Family Medicine | DX: I10 Essential (primary) hypertension (principal); E78.5 Hyperlipidemia, unspecified | CPT/HCPCS: 80053; 80061 ==

== ENCOUNTER 2024-01-09 06:53 | Outpatient (CLI) | payer OTHER, SELFPAY ==
--- NOTE | 2024-01-09 07:15 | MR_ITS ---
WS: [id number] MRI LUMBAR SPINE NONCONTRAST HISTORY: Chronic back pain with LEFT groin and leg pain. Surgical planning. COMPARISON: 07/26/2022 TECHNIQUE: Sagittal and axial multisequence imaging is submitted. Litigation Paralegal localizer demonstrates straightening of the normal cervical lordosis. Mild cervical and thoraci c spondylosis. Mild LEFT curvature lumbar spine is similar to the prior examination. L5 anterolisthesis by 7 mm with minimal change. Advanced degenerative disc disease at L5-S1. Otherwise mild degenerative disc diseas e. No acute fractures or marrow edema. Conus terminates normally at L1-2 disc level. L1-L2: Mild bilateral facet joint arthritis and ligamentum flavum hypertrophy. Mild bilateral foramin al narrowing. L2-L3: Diffuse annular disc bulge with a central disc protrusion and osteophytic ridging. Reidentifie d is a small RIGHT foraminal disc protrusion. Mild progression of degenerative changes. There is flui d in the facet joint's. Mild central and bilateral subarticular recess stenosis. There is disc encroa chment upon the traversing L3 nerve roots. L3-L4: Mild annular disc bulging with moderate ligamentum flavum and facet arthritis. Disc contacts t he traversing L4 nerve roots. Mild central, bilateral subarticular recess and foraminal stenosis. L4-L5: Mild annular disc bulging with osteophytic ridging, moderate ligamentum flavum and facet joint arthritis. Tiny central disc protrusion. Mild impingement upon the subarticular recesses and the tra versing L5 nerve roots. Moderate facet arthritis. Moderate bilateral foraminal stenosis. L5-S1: Unroofing of the disc due to the anterolisthesis of L5. Disc encroachment upon the ventral the sandra sac and subarticular recesses. Mild central with moderate to severe bilateral subarticular recess and foraminal stenosis. There is disc contacting the L5-S1 nerve roots bilaterally. Similar to the p rior study. Paravertebral soft tissues are negative. MR/MR lumbar spine wo con* [id number] IMPRESSION: 1. Mild degenerative LEFT curvature lumbar spine is unchanged. 2. Grade 1 anterolisthesis of L5 by 7 mm with mild progression since 07/26/2012 . 3. L5-S1: Moderate to severe central and bilateral foraminal stenosis. Similar to the prior study. 4. L4-5: Disc impingement upon the subarticular recesses and traversing L5 ner ve roots. Moderate bilateral foraminal stenosis. No significant progression. 5. L3-4: Mild central, bilateral subarticular recess and foraminal stenosis. M ild contact on the L4 traversing nerve roots. 6. L2-3: Mild central and bilateral subarticular recess encroachment upon the traversing L3 nerve roots.
== END 2024-01-09 06:54 | disposition home or self-care (01) ==
PROVIDERS: PCP Family Medicine; Visit Provider Family Medicine
DX: M51.16 Intervertebral disc disorders with radiculopathy, lumbar region (principal); M43.8X6 Other specified deforming dorsopathies, lumbar region; M48.07 Spinal stenosis, lumbosacral region; M48.061 Spinal stenosis, lumbar region without neurogenic claudication
CPT/HCPCS: 72148; 80053; 80061

== ENCOUNTER 2024-02-21 06:00 | Outpatient (CLI) | payer OTHER, SELFPAY | END 2024-02-21 06:01 | disposition home or self-care (01) | LOC: SPT 02-22 11:20 | PROVIDERS: Visit Provider Specialist | DX: Z46.89 Encounter for fitting and adjustment of other specified devices (principal); M51.16 Intervertebral disc disorders with radiculopathy, lumbar region | CPT/HCPCS: 97760; L0637 ==

== ENCOUNTER → 2024-02-23 10:01 | Outpatient (BNVA) | payer OTHER, SELFPAY | PROVIDERS: Visit Provider Family Medicine | DX: Z01.818 Encounter for other preprocedural examination (principal) | CPT/HCPCS: 80048; 81003; 85025; 93005 ==

== ENCOUNTER 2024-07-05 07:16 | Outpatient (CLI) | payer OTHER, SELFPAY ==
--- NOTE | 2024-07-05 07:45 | US_ITS ---
WS: [id number] RIGHT UPPER QUADRANT ULTRASOUND HISTORY: 1cm low-density in right lobe on CT COMPARISON: None available. Liver: 15.4 cm in length. Liver is normal size. Well-circumscribed cyst towards the diaphragmatic surface measures 0.9 x 1.1 x 1.0 cm. There is an additional cyst which is probably in the RIGHT lobe of the liver measures 1.3 x 1.1 x 1.4 cm. Mild hepatic steatosis with areas of fatty sparing. No solid mass. Portal Vein: Normal hepatopetal flow with monophasic waveform. Gallbladder: Normally distended gallbladder with no stones or wall thickening. CBD: 0.4 cm Pancreas: Completely obscured. Right kidney: 10.1 cm in length. Normal size and echogenicity. No hydronephrosis or mass. Aorta and IVC: Poorly visualized. No ascites. US/US liver [id number] IMPRESSION: 1. 2 hepatic cysts are identified. No solid mass. As per history low-attenuati on masses were identified on the prior CT. That CT is not available for compari son. 2. Negative gallbladder.
== END 2024-07-05 07:17 | disposition home or self-care (01) ==
PROVIDERS: PCP Family Medicine; Visit Provider Family Medicine
DX: K76.89 Other specified diseases of liver (principal); K76.0 Fatty (change of) liver, not elsewhere classified
CPT/HCPCS: 76705

== ENCOUNTER → 2024-11-26 08:40 | Outpatient (BNVA) | payer OTHER, SELFPAY | PROVIDERS: PCP Family Medicine; Visit Provider Family Medicine | DX: R60.0 Localized edema (principal); E66.9 Obesity, unspecified; R53.83 Other fatigue | CPT/HCPCS: 80053; 80061; 82040; 83036; 83880; 84270; 84403; 84443; 85025 ==

== ENCOUNTER → 2024-12-04 12:12 | Outpatient (BNVA) | payer OTHER, SELFPAY | PROVIDERS: PCP Family Medicine; Visit Provider Family Medicine | DX: Z79.899 Other long term (current) drug therapy (principal) | CPT/HCPCS: 80048 ==

== ENCOUNTER 2025-03-20 06:05 | Outpatient (CLI) | payer OTHER, SELFPAY ==
--- NOTE | 2025-03-20 06:15 | USCV_ITS ---
Arcadio Houhg Age: 59 Gender: M : 1965 Exam Date: 03/20/2025 06:27 Ordering Phys: Blanco Guerrero M.D ([email or web address]) Technologist: Exam Location: [facility] – [place] Indication: cp sob BP: 130 / 80 HR: 74 Rhythm: Sinus Technical Quality: MEASUREMENTS (Male / Female) Normal Values 2D ECHO LV Diastolic Diameter PLAX 5.3 cm 4.2 - 5.9 / 3.9 - 5.3 cm IVS Diastolic Thickness 1.3 cm 0.6 - 1.0 / 0.6 - 0.9 cm IVS Systolic Thickness 2.0 cm LVPW Diastolic Thickness 1.5 cm 0.6 - 1.0 / 0.6 - 0.9 cm LVPW Systolic Thickness 2.3 cm LV Ejection Fraction 2D Teich 62.7 % LV Ejection Fraction MOD 4C 57.7 % LV Ejection Fraction MOD 2C 72.9 % LV Ejection Fraction 2C AL 73.5 % RA Systolic Volume 4C AL 55.8 ml RA Systolic Volume 4C MOD 55.2 ml IVC Diameter 2.0 cm M-MODE LA Ao Ratio MM 1.3 AV Cusp Separation MM 2.2 cm DOPPLER AV Peak Velocity 165.0 cm/s LVOT Peak Velocity 103.0 cm/s MV Area PHT 5.1 cm squared Mitral E to A Ratio 1.1 TV Peak Velocity 144.7 cm/s TR Peak Velocity 205.0 cm/s TR Peak Gradient 16.8 mmHg TV Peak E Velocity 100.0 cm/s PV Peak Velocity 164.0 cm/s FINDINGS Left Ventricle Normal left ventricular size and systolic function, EF of 55- 60%. No regional wall motion abnormalities. Right Ventricle Normal in size and function Right Atrium Normal in size Left Atrium Normal in size IA Septum Grossly normal Mitral Valve Structurally normal valve. Trace mitral regurgitation Aortic Valve Structurally normal aortic valve. No significant stenosis or regurgitation. Tricuspid Valve Insufficient TR jet to calculate RVSP Pulmonic Valve Not well visualized Pericardium Normal Aorta Normal in size IVC Not well visualized CONCLUSIONS LV systolic function is normal with EF of 55-60%. Trace mitral regurgitation Blanco Guerrero MD (Electronically Signed) Final Date: 30 March 2025 10:07 S
== END 2025-03-20 06:06 | disposition home or self-care (01) ==
LOC: RAD 06:06
PROVIDERS: PCP Family Medicine; Visit Provider Internal Medicine
DX: R07.9 Chest pain, unspecified (principal); R06.02 Shortness of breath
CPT/HCPCS: 93306

== ENCOUNTER 2025-03-25 07:41 | Outpatient (CLI) | payer OTHER, SELFPAY ==
--- NOTE | 2025-03-25 08:00 | CT_ITS ---
WS: [id number] LDCT LUNG CANCER SCREENING HISTORY: lung cancer screening TECHNIQUE: Axial imaging performed from the apices to 1 cm below the costophrenic angles. Coronal and sagittal reformats are submitted with axial MIP series. All CT scans at [facility] use at least one of these dose optimization techniques: automated exposure control; mA and/or kV adjustment per patient size (includes targeted exams where dose is matched to clinical indication); or iterative reconstruction. DLP: 112.10 mGy.cm DIvol: Mean CTDIvol: 2.90 (mGy) COMPARISON: None available. Diagnostic quality: Satisfactory Lungs: Low lung volumes. Mild elevation of the RIGHT hemidiaphragm. Numerous noncalcified pulmonary nodules are noted. These nodules are bilateral and multilobar. Nodules range in size from 2 to 8 mm. No endobronchial lesions. Heart: Normal size heart with no pericardial effusion.. Dense coronary artery calcification in the LEFT anterior descending. Other findings: Mild atherosclerosis aorta. No adenopathy. Small hiatal hernia. Negative adrenal gland is visualized. CT/CT lung screening [id number] IMPRESSION: LUNG-RADS: 4A-Probably Suspicious FOLLOW UP: 3 Month LDCT OTHER FINDINGS (S MODIFIER): None.
== END 2025-03-25 07:42 | disposition home or self-care (01) ==
LOC: RAD 07:42
PROVIDERS: PCP Family Medicine; Visit Provider Family Medicine
DX: Z12.2 Encounter for screening for malignant neoplasm of respiratory organs (principal); Z87.891 Personal history of nicotine dependence; R91.8 Other nonspecific abnormal finding of lung field; I70.0 Atherosclerosis of aorta; K44.9 Diaphragmatic hernia without obstruction or gangrene; I25.84 Coronary atherosclerosis due to calcified coronary lesion
CPT/HCPCS: 71271

== ENCOUNTER → 2025-04-21 14:22 | Outpatient (BNVA) | payer OTHER, SELFPAY | PROVIDERS: PCP Family Medicine; Visit Provider Student in an Organized Health Care Education/Training Program | DX: M17.11 Unilateral primary osteoarthritis, right knee (principal); Z98.890 Other specified postprocedural states | CPT/HCPCS: 73560; 73565 ==

== ENCOUNTER 2025-04-21 15:18 | Outpatient (CLI) | payer OTHER, SELFPAY | END 2025-04-21 15:19 | disposition home or self-care (01) | LOC: SPT 15:18 | PROVIDERS: PCP Family Medicine; Visit Provider Student in an Organized Health Care Education/Training Program | DX: Z46.89 Encounter for fitting and adjustment of other specified devices (principal); M17.11 Unilateral primary osteoarthritis, right knee | CPT/HCPCS: L1852 ==

== ENCOUNTER 2025-04-29 19:52 | Outpatient (CLI) | payer OTHER, SELFPAY | END 2025-04-29 19:53 | disposition home or self-care (01) | LOC: SLEEP 19:53 | PROVIDERS: PCP Family Medicine; Referring Provider Family Medicine; Visit Provider Internal Medicine Pulmonary Disease | DX: G47.33 Obstructive sleep apnea (adult) (pediatric) (principal) | CPT/HCPCS: 95811 ==